=== PATIENT | female | born 1990 | race Hispanic/Latino ===

== ENCOUNTER 2021-09-01 21:49 | Inpatient (IN) | payer MEDICAID, SELFPAY ==
[2021-09-01 22:18] VITALS: BMI 30.2
[2021-09-01] MEDS ORDERED: Naloxone HCl 0.4 mg/ml Vial IVP PRN ×2 (22:23)
[2021-09-01] MEDS ORDERED: Promethazine HCl 25 MG SUPP PR PRN (22:23)
[2021-09-01] MEDS ORDERED: diphenhydrAMINE 50 MG/ML VIAL IVP PRN (22:23)
[2021-09-01] MEDS ORDERED: Fentanyl 100 MCG/2 ML VIAL SLOW IVP PRN (22:23)
[2021-09-01] MEDS ORDERED: Ondansetron HCl/PF 4 MG/2 ML Vial IVP PRN (22:23)
[2021-09-01] MEDS ORDERED: Promethazine HCl 25 MG/ML VIAL IM PRN ×2 (22:23→22:46)
[2021-09-01] MEDS ORDERED: Ondansetron PF 4 MG/2 ML Vial IVP PRN ×2 (22:23→22:46)
[2021-09-01] MEDS ORDERED: Ketorolac Tromethamine 30 MG/ML VIAL IVP PRN (22:23)
[2021-09-01] MEDS ORDERED: Meperidine HCl/PF 25 MG/ML VIAL SLOW IVP PRN (22:23)
[2021-09-01] MEDS ORDERED: Hydrocerin (Eucerin) Cream 120 gm Jar TOP PRN (22:23)
[2021-09-01] MEDS ORDERED: Naloxone HCl 0.4 mg/ml Vial IV PRN (22:23)
[2021-09-01] MEDS ORDERED: Ketorolac Tromethamine 30 MG/ML VIAL IVP SCH (22:30)
[2021-09-01] MEDS ORDERED: Communication Order-Pharmacy FS SCH (22:30)
[2021-09-01] MEDS ORDERED: Bicitra 30 ML UDCUP PO PRN (22:46)
[2021-09-01] MEDS ORDERED: hydrALAZINE 20 MG/ML VIAL SLOW IVP PRN (22:46)
[2021-09-01] MEDS ORDERED: Famotidine/PF 20 mg/2ml Vial SLOW IVP PRN (22:46)
[2021-09-01] MEDS ORDERED: Lactated Ringer's 1,000 ML IV SCH (23:00)
[2021-09-01] MEDS ORDERED: ceFAZolin 2 GM/Dextrose 50 ML 2 GM in Premix Bag 1 BAG IVPB SCH (23:00)
[2021-09-01 23:54] LABS: Hemoglobin 12.2 g/dL (12.0-15.5); Mean Corpuscular HGB CONC 33.1 g/dL (32.0-36.0); Mean Corpuscular Volume 87.6 fl (81.6-98.3); Mean Platelet Volume 12.3 fl (7.4-10.4); Platelet Count 180 10x3/uL (150-450); RBC Distribution Width 15.8 % (11.5-14.5); Red Blood Cell (RBC) Count 4.21 10x6/uL (3.90-5.03); White Blood Cell (WBC) Count 8.3 10x3/uL (3.5-10.5)
[2021-09-02 00:16] LABS: HIV (1/2) Antibody/Antigen Non-Reactive (NonReactive); HIV 1/2 INDEX 0.05 S/CO (<1.00); Hep B Surf Ag Non-Reactive S/CO (NonReactive)
[2021-09-02 00:22] LABS: HBSAg Index 0.13 S/CO (0-0.99)
[2021-09-02] MEDS ORDERED: Zolpidem Tartrate 5 MG TAB PO SCH (00:30)
[2021-09-02 01:13] LABS: Syphilis Antibody Nonreactive (Nonreactive); Syphilis Antibody Index 0.04 S/CO (<1.00 Non-Reactive)
[2021-09-02 01:43] LABS: SARS-CoV-2 NAA Rapid Test Not Detected (NotDetected)
[2021-09-02] MEDS ORDERED: Famotidine/PF 20 mg/2ml Vial ONE (08:20)
[2021-09-02] MEDS ORDERED: Morphine PF 10 MG/10 ML VIAL ONE (08:21)
[2021-09-02] MEDS ORDERED: ceFAZolin 2 GM/Dextrose 50 ML IVPB ONE (08:21)
[2021-09-02] MEDS ORDERED: ePHEDrine Sulfate 50 MG/10 ML VIAL ONE (08:21)
[2021-09-02] MEDS ORDERED: Oxytocin 10 UNITS/ML VIAL ONE (08:22)
[2021-09-02] MEDS ORDERED: Ondansetron PF 4 MG/2 ML Vial ONE (08:22)
[2021-09-02] MEDS ORDERED: Glycopyrrolate 0.2 MG/ML 5 ML SYRINGE ONE (09:18)
[2021-09-02] MEDS ORDERED: Ketorolac Tromethamine 30 MG/ML VIAL IVP PRN (10:13)
[2021-09-02] MEDS ORDERED: diphenhydrAMINE 50 MG/ML VIAL IVP PRN (10:13)
[2021-09-02] MEDS ORDERED: Naloxone HCl 0.4 mg/ml Vial IVP PRN ×2 (10:13)
[2021-09-02] MEDS ORDERED: Ondansetron PF 4 MG/2 ML Vial IVP PRN ×2 (10:13→12:54)
[2021-09-02] MEDS ORDERED: Hydrocerin (Eucerin) Cream 120 gm Jar TOP PRN (10:13)
[2021-09-02] MEDS ORDERED: Naloxone HCl 0.4 mg/ml Vial IV PRN (10:13)
[2021-09-02] MEDS ORDERED: Fentanyl 100 MCG/2 ML VIAL SLOW IVP PRN (10:13)
[2021-09-02] MEDS ORDERED: Promethazine HCl 25 MG SUPP PR PRN (10:13)
[2021-09-02] MEDS ORDERED: Ondansetron HCl/PF 4 MG/2 ML Vial IVP PRN (10:13)
[2021-09-02] MEDS ORDERED: Promethazine HCl 25 MG/ML VIAL IM PRN (10:13)
[2021-09-02] MEDS ORDERED: Meperidine HCl/PF 25 MG/ML VIAL SLOW IVP PRN (10:13)
[2021-09-02] MEDS ORDERED: Communication Order-Pharmacy FS SCH (10:15)
[2021-09-02] MEDS ORDERED: Ketorolac Tromethamine 30 MG/ML VIAL IVP SCH (10:15)
[2021-09-02] MEDS ORDERED: Zolpidem Tartrate 5 MG TAB PO PRN (10:30)
[2021-09-02] MEDS ORDERED: Butorphanol Tartrate 1 MG/ML VIAL SLOW IVP PRN (10:30)
[2021-09-02] MEDS ORDERED: NS w/ Oxytocin 30 units 500 ML ONE (11:11)
[2021-09-02] MEDS ORDERED: Methylergonovine 0.2 MG/ML VIAL IM SCH (11:15)
[2021-09-02] MEDS ORDERED: NS w/ Oxytocin 30 units 500 ML IV SCH ×2 (11:30→12:54)
[2021-09-02] MEDS ORDERED: Simethicone Chewable 80 MG TAB PO PRN (12:54)
[2021-09-02] MEDS ORDERED: Boostrix 0.5 ML (Tdap) VIAL IM ONE (12:54)
[2021-09-02] MEDS ORDERED: diphenhydrAMINE 25 MG CAP PO PRN (12:54)
[2021-09-02] MEDS ORDERED: Bisacodyl 10 MG SUPP PR PRN (12:54)
[2021-09-02] MEDS ORDERED: Misoprostol 200 MCG TAB PR PRN (12:54)
[2021-09-02] MEDS ORDERED: hydrALAZINE 20 MG/ML VIAL SLOW IVP PRN (12:54)
[2021-09-02] MEDS ORDERED: Lanolin Ointment 7 GM TUBE TOP PRN (12:54)
[2021-09-02] MEDS ORDERED: Acetaminophen 325 MG TAB PO PRN (12:54)
[2021-09-02] MEDS ORDERED: HYDROcodone/Acetaminophen 5/325 mg Tablet PO PRN ×2 (22:15)
[2021-09-03 04:30] LABS: Mean Corpuscular HGB CONC 32.8 g/dL (32.0-36.0); Mean Corpuscular Hemoglobin 28.8 pg (27.0-33.0); Mean Corpuscular Volume 87.7 fl (81.6-98.3); Mean Platelet Volume 12.5 fl (7.4-10.4); Platelet Count 155 10x3/uL (150-450); RBC Distribution Width 15.3 % (11.5-14.5); Red Blood Cell (RBC) Count 3.82 10x6/uL (3.90-5.03); White Blood Cell (WBC) Count 9.8 10x3/uL (3.5-10.5)
[2021-09-03] MEDS: Ferrous Sulfate 325 MG TAB PO SCH (07:44)
[2021-09-03] MEDS: Prenatal Vitamin 1 TAB PO SCH (09:07)
[2021-09-03] MEDS: Ibuprofen 800 MG TAB PO SCH ×2 (14:21→21:14)
[2021-09-04] MEDS: Ibuprofen 800 MG TAB PO SCH (05:50)
[2021-09-04 08:06] VITALS: BP 103/62; TEMP 98.6
[2021-09-04] MEDS: Ferrous Sulfate 325 MG TAB PO SCH (09:07)
[2021-09-04] MEDS: Prenatal Vitamin 1 TAB PO SCH (09:08)
== END 2021-09-04 12:39 | disposition home or self-care (01) | DRG 788 ==
LOC: CSHLD/OP 21:49 → CSHLD 22:13 → CSHPP 09-02 12:35
PROVIDERS: ADMIT Obstetrics & Gynecology; ATTEND Obstetrics & Gynecology
PROC: 10D00Z1 Extraction of Products of Conception, Low, Open Approach (ICD-10-PCS; principal; 2021-09-02)
DX: O48.0 Post-term pregnancy (principal); O99.02 Anemia complicating childbirth; Z20.822 Contact with and (suspected) exposure to COVID-19; Z3A.41 41 weeks gestation of pregnancy; Z79.899 Other long term (current) drug therapy; Z79.82 Long term (current) use of aspirin; Z37.0 Single live birth; O34.211 Maternal care for low transverse scar from previous cesarean delivery; D64.9 Anemia, unspecified
CPT/HCPCS: 36415; 51702; 85027; 86780; 86850; 86900; 86901; 87340; 87389; 99285; J0690; J1885; J2210; J2274; J2405; J2590; S0028; U0002